=== PATIENT | female | born 1980 | race American Indian/Alaskan Native ===

== ENCOUNTER 2017-10-22 19:54 | Emergency (ER) | payer SELFPAY ==
[2017-10-22 20:17] VITALS: BP 147/88
[2017-10-22 20:49] LABS: Bilirubin,Urine NEG (Negative); Blood,Urine NEG (Negative); Ketones,Urine NEG (Negative); Leukocyte Esterase,Urine SM (Negative); Mucus,Urine FEW /HPF; Nitrite,Urine NEG (Negative); Protein,Urine <15 mg/dL mg/dL (Negative); Urobilinogen,Urine < 2.0 mg/dL (<2.0)
--- NOTE | 2017-10-22 22:05 | Emergency Department Report ---
ED Abdominal Pain HPI - General Chief Complaint: Abdominal Pain Stated Complaint: ABD PAIN Time Seen by Provider: 10/22/17 21:35 Source: patient Mode of arrival: Ambulatory Limitations: No Limitations - History of Present Illness Initial Comments: pt is a 37 y/o aaf who presents for left flank pain radiating to superpubic with urinary frequency and urgency x 5 days, pt seen by master barber dx with bv pt denies hematuria no vaginal discharge no vaginal pain no n/v no fever or chills , Complaint: abdominal pain, flank pain Onset/Timin -: days(s) Location: suprapubic Radiation: L flank Migration to: suprapubic Severity: mild Severity scale (0 -10): 2 Quality: burning Consistency: intermittent Improves With: nothing Worsens With: nothing Associated Symptoms: dysuria. denies: nausea, vomiting, fever, constipation, hematemesis, hematochezia, melena, hematuria, anorexia, syncope - Related Data LMP (females 10-50): 3 weeks Previous Rx's Medication Instructions Recorded Last Taken Type Hydrochlorothiazide [HCTZ] 25 mg PO QDAY #30 tablet 08/04/13 Unknown Rx Lisinopril/Hydrochlorothiazide 1 tab PO QDAY #30 tablet 02/26/14 Unknown Rx [Zestoretic 10-12.5 mg] Naproxen [Naprosyn] 500 mg PO BID #30 tablet 02/26/14 Unknown Rx methOCARBAMOL [Robaxin] 500 mg PO BID #30 tab 02/26/14 Unknown Rx traMADol [Ultram 50 MG tab] 50 mg PO Q6HR PRN #20 tablet 02/26/14 Unknown Rx Doxycycline [Vibramycin CAP] 100 mg PO Q12HR #20 capsule 09/06/15 Unknown Rx Fluconazole [Diflucan TAB] 150 mg PO ONCE #1 tablet 09/06/15 Unknown Rx metroNIDAZOLE [Flagyl TAB] 500 mg PO Q12HR #20 tab 09/06/15 Unknown Rx Cephalexin [Keflex] 500 mg PO Q12HR #14 cap 10/22/17 Unknown Rx metroNIDAZOLE [Flagyl] 500 mg PO Q12HR #14 tab 10/22/17 Unknown Rx Allergies Allergy/AdvReac Type Severity Reaction Status Date / Time iodine Allergy Rash Verified 08/04/13 16:42 ED Review of Systems ROS: Stated complaint: ABD PAIN Other details as noted in HPI Constitutional: denies: chills, fever Eyes: denies: eye pain, eye discharge, vision change ENT: denies: ear pain, throat pain Respiratory: denies: cough, shortness of breath, wheezing Cardiovascular: denies: chest pain, palpitations Endocrine: no symptoms reported Gastrointestinal: abdominal pain, other (left flank pain ). denies: nausea, diarrhea Genitourinary: urgency, dysuria, frequency. denies: hematuria, discharge, abnormal menses, dyspareunia Musculoskeletal: denies: back pain, joint swelling, arthralgia Skin: denies: rash, lesions Neurological: denies: headache, weakness, paresthesias Psychiatric: denies: anxiety, depression Hematological/Lymphatic: denies: easy bleeding, easy bruising ED Past Medical Hx - Past Medical History Hx Hypertension: Yes Additional medical history: pre-eclampsia - Surgical History Additional Surgical History: scar tissue removal - Social History Smoking Status: Never Smoker Substance Use Type: None, Alcohol - Medications Home Medications: Home Medications Medication Instructions Recorded Confirmed Last Taken Type Hydrochlorothiazide [HCTZ] 25 mg PO QDAY #30 tablet 08/04/13 02/26/14 Unknown Rx Lisinopril/Hydrochlorothiazide 1 tab PO QDAY #30 tablet 02/26/14 Unknown Rx [Zestoretic 10-12.5 mg] Naproxen [Naprosyn] 500 mg PO BID #30 tablet 02/26/14 Unknown Rx methOCARBAMOL [Robaxin] 500 mg PO BID #30 tab 02/26/14 Unknown Rx traMADol [Ultram 50 MG tab] 50 mg PO Q6HR PRN #20 tablet 02/26/14 Unknown Rx Doxycycline [Vibramycin CAP] 100 mg PO Q12HR #20 capsule 09/06/15 Unknown Rx Fluconazole [Diflucan TAB] 150 mg PO ONCE #1 tablet 09/06/15 Unknown Rx metroNIDAZOLE [Flagyl TAB] 500 mg PO Q12HR #20 tab 09/06/15 Unknown Rx Cephalexin [Keflex] 500 mg PO Q12HR #14 cap 10/22/17 Unknown Rx metroNIDAZOLE [Flagyl] 500 mg PO Q12HR #14 tab 10/22/17 Unknown Rx ED Physical Exam - General Limitations: No Limitations General appearance: alert, in no apparent distress - Head Head exam: Present: atraumatic, normocephalic - Eye Eye exam: Present: normal appearance - ENT ENT exam: Present: mucous membranes moist - Neck Neck exam: Present: normal inspection - Respiratory Respiratory exam: Present: normal lung sounds bilaterally. Absent: respiratory distress - Cardiovascular Cardiovascular Exam: Present: regular rate, normal rhythm. Absent: systolic murmur, diastolic murmur, rubs, gallop - GI/Abdominal GI/Abdominal exam: Present: soft, normal bowel sounds. Absent: distended, tenderness, guarding, rebound, rigid, organomegaly, mass, bruit, hernia - Rectal Rectal exam: Present: deferred - External exam: Present: other (exam deferred per patient ) - Extremities Exam Extremities exam: Present: normal inspection, full ROM. Absent: tenderness - Back Exam Back exam: Present: normal inspection, full ROM. Absent: tenderness, CVA tenderness (R), CVA tenderness (L), muscle spasm, paraspinal tenderness, vertebral tenderness, rash noted - Neurological Exam Neurological exam: Present: alert, oriented X3 - Psychiatric Psychiatric exam: Present: normal affect, normal mood - Skin Skin exam: Present: warm, dry, intact, normal color. Absent: rash ED Course Vital Signs 10/22/17 20:10 Temperature 98.9 F Pulse Rate 88 Respiratory 16 Rate Blood Pressure 147/88 O2 Sat by Pulse 97 Oximetry ED Medical Decision Making - Lab Data Laboratory Tests 10/22/17 20:30 Urine Color Yellow Urine Turbidity Clear Urine pH 5.0 Ur Specific [place] 1.017 Urine Protein <15 mg/dl Urine Glucose (UA) Neg Urine Ketones Neg Urine Blood Neg Urine Nitrite Neg Urine Bilirubin Neg Urine Urobilinogen < 2.0 Ur Leukocyte Esterase Sm Urine WBC (Auto) 3.0 Urine RBC (Auto) 3.0 U Epithel Cells (Auto) 4.0 Urine Mucus Few Urine HCG, Qual Negative - Medical Decision Making pt is a 37 y/o aaf who presents for left flank pain radiating to superpubic with urinary frequency and urgency x 5 days, pt seen by master barber dx with bv pt denies hematuria no vaginal discharge no vaginal pain no n/v no fever or chills , exam: bs normal soft nontender no rebound no point tenderness no signs no bruit no hernia ua: leuk, wbc, given symptoms with tx for uti, pt will follow up with master barber in 2-3 days as scheduled, pt verbalized agreement and understanding of same. Critical care attestation.: If time is entered above; I have spent that time in minutes in the direct care of this critically ill patient, excluding procedure time. ED Disposition Clinical Impression: UTI (urinary tract infection) Qualifiers: Urinary tract infection type: acute cystitis Hematuria presence: without hematuria Qualified Code(s): N30.00 - Acute cystitis without hematuria Disposition: TO HOME OR SELFCARE Is pt being admited?: No Does the pt Need Aspirin: No Condition: Good Instructions: Abdominal Pain (ED) Prescriptions: Cephalexin [Keflex] 500 mg PO Q12HR #14 cap metroNIDAZOLE [Flagyl] 500 mg PO Q12HR #14 tab Referrals: PRIMARY CARE, [Primary Care Provider] - 3-5 Days PROSPER ESPINAL MD [Staff Physician] - 3-5 Days Forms: Work/School Release Form(ED) Time of Disposition: 22:09
== END 2017-10-22 22:14 | disposition home or self-care (01) ==
LOC: ED 19:54
DX: N39.0 Urinary tract infection, site not specified (principal); I10 Essential (primary) hypertension; Z88.8 Allergy status to other drugs, medicaments and biological substances
CPT/HCPCS: 81001; 81025; 99283

== ENCOUNTER 2018-05-14 16:45 | Emergency (ER) | payer MEDICAID ==
[2018-05-14] MEDS ORDERED: TORADOL IM ONE (20:26)
[2018-05-14] MEDS ORDERED: FLEXERIL PO ONE (20:26)
--- NOTE | 2018-05-14 20:30 | Emergency Department Report ---
ED Back Pain/Injury HPI - General Chief Complaint: Back Pain/Injury Stated Complaint: BACK PAIN Source: patient Limitations: No Limitations - History of Present Illness Initial Comments: 37 0 -[place] female comes to the emergency room stating that she fell on yesterday while watching the fireworks. She said she fell on her back and now having back pain from the top to the bottom. Patient denies any urinary or fecal incontinence. She reports she is able to walk but it makes it worse. She reports that she took Tylenol yesterday and ibuprofen yesterday without much relief. MD Complaint: back pain, back injury, fall -: days(s) (1) Similar Symptoms Previously: No Place: street Radiation: none Severity scale (0 -10): 10 Quality: sharp, aching Consistency: constant Improves With: none Worsens With: movement Context: fall Associated Symptoms: denies other symptoms Treatments Prior to Arrival: NSAIDS, acetaminophen - Related Data Previous Rx's Medication Instructions Recorded Last Taken Type Hydrochlorothiazide [HCTZ] 25 mg PO QDAY #30 tablet 08/04/13 Unknown Rx Lisinopril/Hydrochlorothiazide 1 tab PO QDAY #30 tablet 02/26/14 Unknown Rx [Zestoretic 10-12.5 mg] Naproxen [Naprosyn] 500 mg PO BID #30 tablet 02/26/14 Unknown Rx methOCARBAMOL [Robaxin] 500 mg PO BID #30 tab 02/26/14 Unknown Rx traMADol [Ultram 50 MG tab] 50 mg PO Q6HR PRN #20 tablet 02/26/14 Unknown Rx Doxycycline [Vibramycin CAP] 100 mg PO Q12HR #20 capsule 09/06/15 Unknown Rx Fluconazole [Diflucan TAB] 150 mg PO ONCE #1 tablet 09/06/15 Unknown Rx metroNIDAZOLE [Flagyl TAB] 500 mg PO Q12HR #20 tab 09/06/15 Unknown Rx Cephalexin [Keflex] 500 mg PO Q12HR #14 cap 10/22/17 Unknown Rx metroNIDAZOLE [Flagyl] 500 mg PO Q12HR #14 tab 10/22/17 Unknown Rx Baclofen [Lioresal] 10 mg PO TID #15 tab 05/14/18 Unknown Rx Ibuprofen [Motrin 800 MG tab] 800 mg PO Q8HR PRN #30 tablet 05/14/18 Unknown Rx Allergies Allergy/AdvReac Type Severity Reaction Status Date / Time iodine Allergy Rash Verified 08/04/13 16:42 ED Review of Systems ROS: Stated complaint: BACK PAIN Other details as noted in HPI Gastrointestinal: denies: abdominal pain, nausea, vomiting Musculoskeletal: back pain Skin: denies: rash, lesions Neurological: denies: headache, weakness, paresthesias Psychiatric: as per HPI ED Past Medical Hx - Past Medical History Hx Hypertension: Yes Additional medical history: pre-eclampsia - Surgical History Additional Surgical History: scar tissue removal - Social History Smoking Status: Never Smoker Substance Use Type: Alcohol - Medications Home Medications: Home Medications Medication Instructions Recorded Confirmed Last Taken Type Hydrochlorothiazide [HCTZ] 25 mg PO QDAY #30 tablet 08/04/13 02/26/14 Unknown Rx Lisinopril/Hydrochlorothiazide 1 tab PO QDAY #30 tablet 02/26/14 Unknown Rx [Zestoretic 10-12.5 mg] Naproxen [Naprosyn] 500 mg PO BID #30 tablet 02/26/14 Unknown Rx methOCARBAMOL [Robaxin] 500 mg PO BID #30 tab 02/26/14 Unknown Rx traMADol [Ultram 50 MG tab] 50 mg PO Q6HR PRN #20 tablet 02/26/14 Unknown Rx Doxycycline [Vibramycin CAP] 100 mg PO Q12HR #20 capsule 09/06/15 Unknown Rx Fluconazole [Diflucan TAB] 150 mg PO ONCE #1 tablet 09/06/15 Unknown Rx metroNIDAZOLE [Flagyl TAB] 500 mg PO Q12HR #20 tab 09/06/15 Unknown Rx Cephalexin [Keflex] 500 mg PO Q12HR #14 cap 10/22/17 Unknown Rx metroNIDAZOLE [Flagyl] 500 mg PO Q12HR #14 tab 10/22/17 Unknown Rx Baclofen [Lioresal] 10 mg PO TID #15 tab 05/14/18 Unknown Rx Ibuprofen [Motrin 800 MG tab] 800 mg PO Q8HR PRN #30 tablet 05/14/18 Unknown Rx ED Physical Exam - General Limitations: No Limitations General appearance: alert, in no apparent distress - Head Head exam: Present: atraumatic, normocephalic - Eye Eye exam: Present: EOMI - ENT ENT exam: Present: mucous membranes moist - Respiratory Respiratory exam: Present: normal lung sounds bilaterally. Absent: respiratory distress - Cardiovascular Cardiovascular Exam: Present: regular rate, normal rhythm. Absent: systolic murmur, diastolic murmur, rubs, gallop - Extremities Exam Extremities exam: Present: normal inspection, full ROM - Back Exam Back exam: Present: full ROM, tenderness, muscle spasm, paraspinal tenderness - Neurological Exam Neurological exam: Present: alert, oriented X3 - Psychiatric Psychiatric exam: Present: normal affect, normal mood - Skin Skin exam: Present: warm, dry, intact, normal color. Absent: rash ED Course Vital Signs 05/14/18 16:55 Temperature 98.2 F Pulse Rate 69 Respiratory 16 Rate Blood Pressure 164/98 O2 Sat by Pulse 99 Oximetry ED Medical Decision Making - Radiology Data Radiology results: report reviewed FINAL REPORT EXAM: XR SPINE THORACIC 2V HISTORY: fall with back pain TECHNIQUE: AP and lateral views of thoracic spine. PRIORS: None. FINDINGS: No loss of height or gross malalignment of thoracic vertebral bodies. No obvious osseous destruction. Thoracic disc spaces maintained. Paraspinal soft tissues grossly unremarkable. IMPRESSION: 1. No acute osseous abnormality. Transcribed By: [facility] Dictated By: DORIS SCHAEFER MD Electronically Authenticated By: DORIS SCHAEFER MD Signed Date/Time: 05/14/182133 DD/ 33 TD/TT: 05/14/182133 FINDINGS: No loss of height or gross malalignment of lumbar vertebral bodies. No obvious osseous destruction. Lumbar disc spaces maintained. Paraspinal soft tissues grossly unremarkable. IMPRESSION: 1. No acute osseous abnormality. Transcribed By: [facility] Dictated By: DORIS SCHAEFER MD Electronically Authenticated By: DORIS SCHAEFER MD Signed Date/Time: 05/14/182132 DD/ 32 TD/TT: 05/14/182132 - Medical Decision Making Patient has been evaluated but this provider fast track. Patient will be given a Toradol injection of 30 mg and Flexeril 10 mg. We'll discharge patient on ibuprofen 800 mg every 8 hours as needed for pain as well as Flexeril 10 mg by mouth every 8 hours as needed for muscle sparing foods and tightness and pain.. If symptoms persist does not get better please follow up with her primary care provider. Critical care attestation.: If time is entered above; I have spent that time in minutes in the direct care of this critically ill patient, excluding procedure time. ED Disposition Clinical Impression: Fall Qualifiers: Encounter type: initial encounter Qualified Code(s): W19.XXXA - Unspecified fall, initial encounter Back strain Qualifiers: Encounter type: initial encounter Qualified Code(s): S39.012A - Strain of muscle, fascia and tendon of lower back, initial encounter Disposition: TO HOME OR SELFCARE Is pt being admited?: No Does the pt Need Aspirin: No Condition: Stable Additional Instructions: Please take pain medication as needed. If her symptoms persist or gets worse please follow-up with the primary care provider. Prescriptions: Baclofen [Lioresal] 10 mg PO TID #15 tab Ibuprofen [Motrin 800 MG tab] 800 mg PO Q8HR PRN #30 tablet PRN Reason: Pain , Severe (7-10) Referrals: PRIMARY CARE, [Primary Care Provider] - 3-[address] [facility] [Provider Group] - 3-5 Days Forms: Work/School Release Form(ED)
--- NOTE | 2018-05-14 21:37 | XRay Report ---
FINAL REPORT EXAM: XR SPINE LUMBOSACRAL 2-3V HISTORY: fall with back pain TECHNIQUE: AP, lateral and coned-down views of lumbar spine. PRIORS: None. FINDINGS: No loss of height or gross malalignment of lumbar vertebral bodies. No obvious osseous destruction. Lumbar disc spaces maintained. Paraspinal soft tissues grossly unremarkable. IMPRESSION: 1. No acute osseous abnormality.
--- NOTE | 2018-05-14 21:38 | XRay Report ---
FINAL REPORT EXAM: XR SPINE THORACIC 2V HISTORY: fall with back pain TECHNIQUE: AP and lateral views of thoracic spine. PRIORS: None. FINDINGS: No loss of height or gross malalignment of thoracic vertebral bodies. No obvious osseous destruction. Thoracic disc spaces maintained. Paraspinal soft tissues grossly unremarkable. IMPRESSION: 1. No acute osseous abnormality.
[2018-05-14 22:09] VITALS: BP 126/64
== END 2018-05-14 22:07 | disposition home or self-care (01) ==
LOC: ED 16:45
DX: S39.012A Strain of muscle, fascia and tendon of lower back, initial encounter (principal); I10 Essential (primary) hypertension; Z88.8 Allergy status to other drugs, medicaments and biological substances; W18.30XA Fall on same level, unspecified, initial encounter; Y93.89 Activity, other specified; Y92.410 Unspecified street and highway as the place of occurrence of the external cause; Y99.8 Other external cause status
CPT/HCPCS: 72070; 72100; 96372; 99283; J1885

== ENCOUNTER 2018-07-23 17:49 | Emergency (ER) | payer MEDICAID ==
[2018-07-23 18:32] VITALS: BP 166/109
[2018-07-23 19:04] LABS: Bilirubin,Urine NEG (Negative); Blood,Urine NEG (Negative); Color,Urine Yellow (Yellow); Mucus,Urine 1+ /HPF; Protein,Urine <15 mg/dL mg/dL (Negative)
[2018-07-23 19:07] LABS: Basophils # (Auto) 0.1 K/mm3 (0.0-0.1); Basophils % (Auto) 1.1 % (0.0-1.8); Eosinophils # (Auto) 0.1 K/mm3 (0.0-0.4); Eosinophils % (Auto) 1.7 % (0.0-4.3); Hematocrit 39.8 % (30.3-42.9); Hemoglobin 13.4 gm/dl (10.1-14.3); Lymphocytes # (Auto) 3.1 K/mm3 (1.2-5.4); Lymphocytes % (Auto) 43.6 % (13.4-35.0); Mean Corpuscular HGB Conc 34 % (30-34); Mean Corpuscular Hemoglobin 30 pg (28-32); Mean Corpuscular Volume 90 fl (79-97); Monocytes # (Auto) 0.4 K/mm3 (0.0-0.8); Monocytes % (Auto) 5.1 % (0.0-7.3); Platelet Count 297 K/mm3 (140-440); Red Blood Count 4.44 M/mm3 (3.65-5.03); Red Cell Distribution Width 13.6 % (13.2-15.2)
[2018-07-23 19:50] LABS: Alanine Aminotransferase 17 units/L (7-56); BUN/Creatinine Ratio 12; Blood Urea Nitrogen 12 mg/dL (7-17); Calcium 9.1 mg/dL (8.4-10.2); Hemolysis Index 10
== END 2018-07-23 23:00 | disposition left against medical advice (07) ==
LOC: ED 17:49
DX: R11.2 Nausea with vomiting, unspecified (principal); R19.7 Diarrhea, unspecified; Z53.21 Procedure and treatment not carried out due to patient leaving prior to being seen by health care provider
CPT/HCPCS: 36415; 80053; 81001; 84703; 85025

== ENCOUNTER 2019-12-30 18:46 | Emergency (ER) | payer MEDICAID ==
--- NOTE | 2019-12-30 19:35 | Emergency Department Report ---
Blank Doc - Documentation Documentation: 39-year-old female that presents with n/v/d and abdominal pain. Stated has been also coughing. This initial assessment/diagnostic orders/clinical plan/treatment(s) is/are subject to change based on patient's health status, clinical progression and re- assessment by fellow clinical providers in the ED. Further treatment and workup at subsequent clinical providers discretion. Patient/guardians urged not to elope from the ED as their condition may be serious if not clinically assessed and managed. Initial orders include: 1- Patient sent to [facility] for further evaluation and treatment 2- labs 3- UA 4- CXR
[2019-12-30 20:05] LABS: Eosinophils # (Auto) 0.1 K/mm3 (0.0-0.4); Eosinophils % (Auto) 2.3 % (0.0-4.3); Hematocrit 42.1 % (30.3-42.9); Hemoglobin 13.9 gm/dl (10.1-14.3); Lymphocytes # (Auto) 1.2 K/mm3 (1.2-5.4); Lymphocytes % (Auto) 33.7 % (13.4-35.0); Mean Corpuscular HGB Conc 33 % (30-34); Mean Corpuscular Volume 89 fl (79-97); Monocytes # (Auto) 0.3 K/mm3 (0.0-0.8); Monocytes % (Auto) 8.2 % (0.0-7.3); Platelet Count 231 K/mm3 (140-440); Red Blood Count 4.73 M/mm3 (3.65-5.03); Red Cell Distribution Width 13.6 % (13.2-15.2)
[2019-12-30 20:25] LABS: Alanine Aminotransferase 28 units/L (7-56); Albumin 3.3 g/dL (3.9-5); BUN/Creatinine Ratio 10; Blood Urea Nitrogen 6 mg/dL (7-17); Calcium 8.5 mg/dL (8.4-10.2); Hemolysis Index 60
[2019-12-30 20:35] LABS: Bilirubin,Urine NEG (Negative); Blood,Urine SM (Negative); Color,Urine Yellow (Yellow); Hyaline Casts,Urine 1 /LPF; Mucus,Urine 1+ /HPF; Protein,Urine <15 mg/dL mg/dL (Negative); Urobilinogen,Urine < 2.0 mg/dL (<2.0)
--- NOTE | 2019-12-30 20:39 | XRay Report ---
CHEST 2 VIEWS INDICATION: cough. COMPARISON: None FINDINGS: Support devices: None. Heart: Within normal limits. Lungs/pleura: No acute air space or interstitial disease. No pneumothorax. Additional findings: None. IMPRESSION: 1. No acute findings. Signer Name: Tha Franco MD Signed: 12/30/2019 8:34 PM Workstation Name: [id number]
--- NOTE | 2019-12-30 22:01 | Emergency Department Report ---
Chief Complaint: Abdominal Pain Stated Complaint: FLU SYM/BODY PAIN Time Seen by Provider: 12/30/19 21:44 - HPI History of Present Illness: 39-year-old -[place] female presents to the emergency room for body aches, coughing nausea vomiting diarrhea and chills that started 3 days ago. Patient was noted that her blood pressure was elevated patient reports she has not taken any blood pressure medicines in the last 2 years. Patient states that she was on a hydrochlorothiazide. Patient states that she has stopped because it made her feel funny. Patient reports that she has taken Allyssa-Marlin plus and NyQuil. - Exam Vital Signs: Vital Signs 12/30/19 12/30/19 18:56 19:34 Temperature 99.1 F 99.1 F Pulse Rate 86 86 Respiratory 18 Rate Blood Pressure 162/95 Blood Pressure 184/103 [Left] O2 Sat by Pulse 98 Oximetry Physical Exam: Patient is alert and oriented x3 no acute distress nontoxic in appearance HEENT: Oral mucosa is moist neck is full range of motion no tenderness Chest clear to auscultation bilateral cardiac regular rate and rhythm Abdomen soft nontender nondistended MSE screening note: Focused history and physical exam performed. Due to findings the following was ordered: 39-year-old -[place] female presents to the emergency room for body aches, coughing nausea vomiting diarrhea and chills that started 3 days ago. Patient was noted that her blood pressure was elevated patient reports she has not taken any blood pressure medicines in the last 2 years. Patient states that she was on a hydrochlorothiazide. Patient states that she has stopped because it made her feel funny. Patient reports that she has taken Allyssa-Marlin plus and NyQuil. Discussed with patient.labs are stable. Chest x-ray is negative patient can take ibuprofen 600 mg every 6-8 hours for body aches she can take Claritin 10 mg p.o. for cough as well as [id number] Mucinex. Patient can follow-up with her primary care provider if symptoms persist. ED Medical Decision Making - Lab Data Result diagrams: 12/30/19 19:42 12/30/19 19:42 ED Disposition for MSE Clinical Impression: Flu-like symptoms Disposition: Z- MED SCREENING EXAM-LEFT Is pt being admited?: No Does the pt Need Aspirin: No Condition: Stable Instructions: Abdominal Pain (ED) Additional Instructions: Discussed with patient.labs are stable. Chest x-ray is negative patient can wanda e ibuprofen 600 mg every 6-8 hours for body aches she can take Claritin 10 mg p.o. for cough as well as [id number] Mucinex. Increase fluid intake advance diet as tolerated. Rest. Patient can follow-up with her primary care provider if symptoms persist. Referrals: LINDA KATE MD [Primary Care Provider] - 3-5 Days Forms: Work/School Release Form(ED)
[2019-12-30 22:20] VITALS: BP 152/96
== END 2019-12-30 22:19 | disposition left against medical advice (07) ==
LOC: ED 18:46
DX: R05 Cough (principal); R11.2 Nausea with vomiting, unspecified; M79.10 Myalgia, unspecified site; R19.7 Diarrhea, unspecified; R68.83 Chills (without fever); Z91.041 Radiographic dye allergy status
CPT/HCPCS: 36415; 71046; 80053; 81001; 83690; 84703; 85025

== ENCOUNTER 2020-04-17 10:51 | Emergency (ER) | payer SELFPAY ==
[2020-04-17 10:58] VITALS: BP 167/107
[2020-04-17 11:38] LABS: Basophils % (Auto) 0.5 % (0.0-1.8); Eosinophils # (Auto) 0.1 K/mm3 (0.0-0.4); Eosinophils % (Auto) 1.3 % (0.0-4.3); Lymphocytes # (Auto) 0.9 K/mm3 (1.2-5.4); Lymphocytes % (Auto) 20.9 % (13.4-35.0); Monocytes # (Auto) 0.3 K/mm3 (0.0-0.8); Monocytes % (Auto) 7.8 % (0.0-7.3)
[2020-04-17 11:42] LABS: Bacteria,Urine 1+ /HPF (Negative); Bilirubin,Urine NEG (Negative); Blood,Urine NEG (Negative); Color,Urine Yellow (Yellow); Mucus,Urine FEW /HPF; Protein,Urine <15 mg/dL mg/dL (Negative); Urobilinogen,Urine < 2.0 mg/dL (<2.0)
[2020-04-17 11:47] LABS: HCG Qualitative,Urine Negative (Negative)
[2020-04-17 11:49] LABS: Hematocrit 38.7 % (30.3-42.9); Hemoglobin 12.9 gm/dl (10.1-14.3); Mean Corpuscular HGB Conc 33 % (30-34); Mean Corpuscular Volume 89 fl (79-97); Platelet Count 220 K/mm3 (140-440); Red Blood Count 4.36 M/mm3 (3.65-5.03); Red Cell Distribution Width 13.7 % (13.2-15.2)
[2020-04-17 12:01] LABS: Alanine Aminotransferase 23 units/L (7-56); Albumin 3.7 g/dL (3.9-5); BUN/Creatinine Ratio 12; Blood Urea Nitrogen 7 mg/dL (7-17); Calcium 8.4 mg/dL (8.4-10.2); Hemolysis Index 8
[2020-04-17] MEDS ORDERED: HYOSCYAMINE SUBL 0.125 MG TAB SL ONE (13:07)
[2020-04-17] MEDS ORDERED: ACETAMINOPHEN 325 MG TAB PO ONE (13:07)
--- NOTE | 2020-04-17 13:12 | Emergency Department Report ---
ED General Adult HPI - General Chief complaint: Upper Respiratory Infection Stated complaint: FLU SX/DIZZY Time Seen by Provider: 04/17/20 11:04 Source: patient Mode of arrival: Ambulatory Limitations: No Limitations - History of Present Illness Initial comments: Patient is a 39-year-old female presents emergency room with complaints of "flulike symptoms" that began last night. She has associated chills, diarrhea, generalized body aches, lightheadedness, cough. She states that she took a Allyssa-Winona last night. She denies any abdominal pain, shortness of breath, vomiting. She has a past medical history of hypertension and states that she takes hydrochlorothiazide but did not take it today. She has an allergy to iodine. She denies any known sick contacts or recent travel. - Related Data Previous Rx's Medication Instructions Recorded Last Taken Type hydroCHLOROthiazide [HCTZ] 25 mg PO QDAY #30 tablet 08/04/13 Unknown Rx Lisinopril/Hydrochlorothiazide 1 tab PO QDAY #30 tablet 02/26/14 Unknown Rx [Zestoretic 10-12.5 mg] Naproxen [Naprosyn] 500 mg PO BID #30 tablet 02/26/14 Unknown Rx methOCARBAMOL [Robaxin] 500 mg PO BID #30 tab 02/26/14 Unknown Rx traMADoL [Ultram 50 MG tab] 50 mg PO Q6HR PRN #20 tablet 02/26/14 Unknown Rx DOXYCYCLINE Hyclate [Vibramycin 100 mg PO Q12HR #20 capsule 09/06/15 Unknown Rx CAP] Fluconazole (Nf) [Diflucan TAB] 150 mg PO ONCE #1 tablet 09/06/15 Unknown Rx metroNIDAZOLE [Flagyl TAB] 500 mg PO Q12HR #20 tab 09/06/15 Unknown Rx cephALEXin [Keflex] 500 mg PO Q12HR #14 cap 10/22/17 Unknown Rx metroNIDAZOLE [Flagyl] 500 mg PO Q12HR #14 tab 10/22/17 Unknown Rx Baclofen [Lioresal] 10 mg PO TID #15 tab 05/14/18 Unknown Rx Ibuprofen [Motrin 800 MG tab] 800 mg PO Q8HR PRN #30 tablet 05/14/18 Unknown Rx Allergies Allergy/AdvReac Type Severity Reaction Status Date / Time iodine Allergy Rash Verified 12/30/19 18:53 ED Review of Systems ROS: Stated complaint: FLU SX/DIZZY Other details as noted in HPI Comment: All other systems reviewed and negative ED Past Medical Hx - Past Medical History Previous Medical History?: Yes Hx Hypertension: Yes Additional medical history: pre-eclampsia - Surgical History Past Surgical History?: Yes Additional Surgical History: scar tissue removal UTERUS - Social History Smoking Status: Current Every Day Smoker Substance Use Type: Alcohol - Medications Home Medications: Home Medications Medication Instructions Recorded Confirmed Last Taken Type hydroCHLOROthiazide [HCTZ] 25 mg PO QDAY #30 tablet 08/04/13 02/26/14 Unknown Rx Lisinopril/Hydrochlorothiazide 1 tab PO QDAY #30 tablet 02/26/14 Unknown Rx [Zestoretic 10-12.5 mg] Naproxen [Naprosyn] 500 mg PO BID #30 tablet 02/26/14 Unknown Rx methOCARBAMOL [Robaxin] 500 mg PO BID #30 tab 02/26/14 Unknown Rx traMADoL [Ultram 50 MG tab] 50 mg PO Q6HR PRN #20 tablet 02/26/14 Unknown Rx DOXYCYCLINE Hyclate [Vibramycin 100 mg PO Q12HR #20 capsule 09/06/15 Unknown Rx CAP] Fluconazole (Nf) [Diflucan TAB] 150 mg PO ONCE #1 tablet 09/06/15 Unknown Rx metroNIDAZOLE [Flagyl TAB] 500 mg PO Q12HR #20 tab 09/06/15 Unknown Rx cephALEXin [Keflex] 500 mg PO Q12HR #14 cap 10/22/17 Unknown Rx metroNIDAZOLE [Flagyl] 500 mg PO Q12HR #14 tab 10/22/17 Unknown Rx Baclofen [Lioresal] 10 mg PO TID #15 tab 05/14/18 Unknown Rx Ibuprofen [Motrin 800 MG tab] 800 mg PO Q8HR PRN #30 tablet 05/14/18 Unknown Rx ED Physical Exam - General Limitations: No Limitations General appearance: alert, in no apparent distress - Head Head exam: Present: atraumatic, normocephalic - Eye Eye exam: Present: normal appearance - ENT ENT exam: Present: mucous membranes moist - Respiratory Respiratory exam: Present: normal lung sounds bilaterally. Absent: respiratory distress, wheezes, rales, rhonchi, stridor, chest wall tenderness, accessory muscle use, decreased breath sounds, prolonged expiratory - Cardiovascular Cardiovascular Exam: Present: regular rate, normal rhythm, normal heart sounds. Absent: systolic murmur, diastolic murmur, rubs, gallop - GI/Abdominal GI/Abdominal exam: Present: soft, normal bowel sounds. Absent: distended, tenderness, guarding, rebound, rigid - Neurological Exam Neurological exam: Present: alert, oriented X3 - Psychiatric Psychiatric exam: Present: normal affect, normal mood - Skin Skin exam: Present: warm, dry, intact ED Course Vital Signs 04/17/20 04/17/20 10:55 11:03 Temperature 99.7 F H 99.7 F H Pulse Rate 88 88 Respiratory 20 20 Rate Blood Pressure 167/107 167/107 O2 Sat by Pulse 100 100 Oximetry ED Medical Decision Making - Lab Data Result diagrams: 04/17/20 11:15 04/17/20 11:15 Lab Results 04/17/20 04/17/20 04/17/20 Range/Units 11:13 11:15 11:15 WBC 4.1 L (4.5-11.0) K/mm3 RBC 4.36 (3.65-5.03) M/mm3 Hgb 12.9 (10.1-14.3) gm/dl Hct 38.7 (30.3-42.9) % MCV 89 (79-97) fl MCH 30 (28-32) pg MCHC 33 (30-34) % RDW 13.7 (13.2-15.2) % Plt Count 220 (140-440) K/mm3 Lymph % (Auto) 20.9 (13.4-35.0) % Wilson % (Auto) 7.8 H (0.0-7.3) % Eos % (Auto) 1.3 (0.0-4.3) % Baso % (Auto) 0.5 (0.0-1.8) % Lymph # 0.9 L (1.2-5.4) K/mm3 Wilson # 0.3 (0.0-0.8) K/mm3 Eos # 0.1 (0.0-0.4) K/mm3 Baso # 0.0 (0.0-0.1) K/mm3 Seg Neutrophils % 69.5 (40.0-70.0) % Seg Neutrophils # 2.9 (1.8-7.7) K/mm3 Sodium 137 (137-145) mmol/L Potassium 3.8 (3.6-5.0) mmol/L Chloride 104.7 (98-107) mmol/L Carbon Dioxide 24 (22-30) mmol/L Anion Gap 12 mmol/L BUN 7 (7-17) mg/dL Creatinine 0.6 L (0.7-1.2) mg/dL Estimated GFR > 60 ml/min BUN/Creatinine Ratio 12 % Glucose 109 H (65-100) mg/dL Calcium 8.4 (8.4-10.2) mg/dL Total Bilirubin 0.30 (0.1-1.2) mg/dL AST 20 (5-40) units/L ALT 23 (7-56) units/L Alkaline Phosphatase 73 (35-129) units/L Total Protein 6.6 (6.3-8.2) g/dL Albumin 3.7 L (3.9-5) g/dL Albumin/Globulin Ratio 1.3 % Lipase 25 (13-60) units/L Urine Color Yellow (Yellow) Urine Turbidity Cloudy (Clear) Urine pH 7.0 (5.0-7.0) Ur Specific Sumner 1.017 (1.003-1.030) Urine Protein <15 mg/dl (Negative) mg/dL Urine Glucose (UA) Neg (Negative) mg/dL Urine Ketones Neg (Negative) mg/dL Urine Blood Neg (Negative) Urine Nitrite Neg (Negative) Urine Bilirubin Neg (Negative) Urine Urobilinogen < 2.0 (<2.0) mg/dL Ur Leukocyte Esterase Neg (Negative) Urine WBC (Auto) 1.0 (0.0-6.0) /HPF Urine RBC (Auto) 1.0 (0.0-6.0) /HPF U Epithel Cells (Auto) 37.0 H (0-13.0) /HPF Urine Bacteria (Auto) 1+ (Negative) /HPF Urine Mucus Few /HPF Urine HCG, Qual Negative (Negative) - Radiology Data Radiology results: report reviewed CHEST 2 VIEWS INDICATION: cough and. COMPARISON: 12/30/2019 FINDINGS: Support devices: None. Heart: Within normal limits. Lungs/pleura: No acute air space or interstitial disease. No pneumothorax. Additional findings: None. IMPRESSION: No acute findings. Signer Name: Jose Miguel Hernandez Jr, MD Signed: 04/17/2020 12:21 PM Workstation Name: [id number] Transcribed By: TTR Dictated By: JOSE MIGUEL HERNANDEZ JR, MD Electronically Authenticated By: JOSE MIGUEL HERNANDEZ JR, MD Signed Date/Time: 04/17/201220 DD/ 20 TD/TT: - Medical Decision Making Patient is a 39-year-old female presents emergency room with complaints of "flulike symptoms" that began last night. She has associated chills, diarrhea, generalized body aches, lightheadedness, cough. She states that she took a Allyssa-Winona last night. She denies any abdominal pain, shortness of breath, vomiting. She has a past medical history of hypertension and states that she takes hydrochlorothiazide but did not take it today. She has an allergy to iodine. She denies any known sick contacts or recent travel. Vitals with very mild low-grade temp, patient given Tylenol, blood pressure is elevated secondary to patient not taking her hydrochlorothiazide today. Breath sounds are clear bilaterally, no wheezing, no rales, no rhonchi, no abdominal tenderness to palpation, no guarding, no rebound, no rigidity, normal bowel sounds. Labs are stable and without signs of dehydration. UA without evidence of UTI. Urine is negative. Patient given Levsin and was able to tolerate p.o. intake without difficulty. She had no further episodes of diarrhea while in the emergency department. Chest x-ray with no acute process. Patient symptoms most likely related to viral syndrome. Her x-ray is normal, labs are all stable, no signs of dehydration, oxygen saturation is 100% on room air. Discussed supportive care and symptomatic treatment with patient. Discussed strict return precautions. Discussed with patient to please take her blood pressure medication when she returns home. Advised patient Please increase your fluid intake over the next several days. Take Tylenol as needed for body aches or fever. Eat a bland diet and began with liquids and slowly advance your diet as tolerated. Get plenty of rest. May take [id number] medication for symptomatic relief. Follow-up with a primary care doctor for reexamination. Return to emergency room immediately for any new or worsening symptoms including but not limited to shortness of breath, difficulty breathing, chest pain, unable to tolerate by mouth intake, high fever not controlled by Tylenol, etc. please self quarantine for 2 weeks. Please do not go out in public. If you are around others at home please wear a mask. If you need to cough or sneeze please do so in a napkin and immediately throw away and wash your hands. Wash your hands frequently. Wipe everything down. Please discuss with your doctor about COVID- 19 testing. - Differential Diagnosis URI, PNA, gastroenteritis, enteritis, viral syndrome, food poisoning, COVID Critical care attestation.: If time is entered above; I have spent that time in minutes in the direct care of this critically ill patient, excluding procedure time. ED Disposition Clinical Impression: Chills, Generalized body aches, Cough, Lightheadedness Diarrhea Qualifiers: Diarrhea type: unspecified type Qualified Code(s): R19.7 - Diarrhea, unspecified Disposition: DC- TO HOME OR SELFCARE Is pt being admited?: No Does the pt Need Aspirin: No Condition: Stable Instructions: COVID-19, Viral Syndrome (ED) Additional Instructions: Please increase your fluid intake over the next several days. Take Tylenol as needed for body aches or fever. Eat a bland diet and began with liquids and slowly advance your diet as tolerated. Get plenty of rest. May take [id number] medication for symptomatic relief. Follow-up with a primary care doctor for reexamination. Return to emergency room immediately for any new or worsening symptoms including but not limited to shortness of breath, difficulty breathing, chest pain, unable to tolerate by mouth intake, high fever not controlled by Tylenol, etc. please self quarantine for 2 weeks. Please do not go out in public. If you are around others at home please wear a mask. If you need to cough or sneeze please do so in a napkin and immediately throw away and wash your hands. Wash your hands frequently. Wipe everything down. Please discuss with your doctor about COVID-19 testing. Referrals: PRIMARY MD LICHA [Primary Care Provider] - 3-5 Days SOL GARRIDO MD [Staff Physician] - 3-5 Days [facility] [Provider Group] - 3-5 Days Forms: Work/School Release Form(ED) Time of Disposition: 13:10 Print Language: JAPANESE
== END 2020-04-17 13:21 | disposition home or self-care (01) ==
LOC: ED 10:51
DX: R42 Dizziness and giddiness (principal); R19.7 Diarrhea, unspecified; R05 Cough; I10 Essential (primary) hypertension; F17.200 Nicotine dependence, unspecified, uncomplicated; Z91.09 Other allergy status, other than to drugs and biological substances
CPT/HCPCS: 36415; 71046; 80053; 81001; 81025; 83690; 85025

== ENCOUNTER 2021-03-20 11:04 | Emergency (ER) | payer MEDICAID ==
[2021-03-20 12:20] VITALS: BP 159/107
--- NOTE | 2021-03-20 13:12 | Emergency Department Report ---
ED ENT HPI - General Chief complaint: Sore Throat Stated complaint: HARD TO SWALLOW Time Seen by Provider: 03/20/21 12:22 Source: patient Mode of arrival: Ambulatory Limitations: No Limitations - History of Present Illness Initial comments: 40-year-old female with a past medical history of hypertension currently noncompliant with her medication presents to the ER today with complaints of sore throat. Patient states her symptoms started mildly yesterday but got worse today. She states that pain feels sharp, and she is having difficulty swallowing due to pain. She denies any runny nose, nasal congestion, coughs, trismus or drooling. She states that she found out yesterday that a few of her coworkers were positive for strep. She reports no other symptoms at this time. complaint: sore throat -: Gradual - Related Data Previous Rx's Medication Instructions Recorded Last Taken Type Amoxicillin [Trimox CAP] 500 mg PO Q8H PRN #30 capsule 03/20/21 Unknown Rx Ibuprofen [Motrin] 800 mg PO Q8HR PRN #30 tablet 03/20/21 Unknown Rx Allergies Allergy/AdvReac Type Severity Reaction Status Date / Time iodine Allergy Rash Verified 12/30/19 18:53 ED Dental HPI - General Chief complaint: Sore Throat Stated complaint: HARD TO SWALLOW Time Seen by Provider: 03/20/21 12:22 Source: patient Mode of arrival: Ambulatory Limitations: No Limitations - Related Data Previous Rx's Medication Instructions Recorded Last Taken Type Amoxicillin [Trimox CAP] 500 mg PO Q8H PRN #30 capsule 03/20/21 Unknown Rx Ibuprofen [Motrin] 800 mg PO Q8HR PRN #30 tablet 03/20/21 Unknown Rx Allergies Allergy/AdvReac Type Severity Reaction Status Date / Time iodine Allergy Rash Verified 12/30/19 18:53 ED Review of Systems ROS: Stated complaint: HARD TO SWALLOW Other details as noted in HPI Comment: All other systems reviewed and negative Constitutional: denies: chills, fever Eyes: denies: eye pain, eye discharge, vision change ENT: throat pain. denies: ear pain, dental pain, hearing loss, epistaxis, congestion Respiratory: denies: cough, orthopnea, shortness of breath, SOB with exertion, SOB at rest, wheezing Cardiovascular: denies: chest pain, palpitations, edema, syncope, paroxysmal nocturnal dyspnea Endocrine: no symptoms reported Gastrointestinal: denies: abdominal pain, nausea, vomiting, diarrhea, constipation, hematemesis, hematochezia Genitourinary: denies: urgency, dysuria, frequency, hematuria, discharge, abnormal menses, dyspareunia Musculoskeletal: denies: back pain, joint swelling, arthralgia Skin: denies: rash, lesions Neurological: denies: headache, weakness, numbness, paresthesias, confusion, abnormal gait, vertigo Hematological/Lymphatic: denies: easy bleeding, easy bruising, swollen glands ED Past Medical Hx - Past Medical History Previous Medical History?: Yes Hx Hypertension: Yes Additional medical history: pre-eclampsia - Surgical History Additional Surgical History: scar tissue removal UTERUS - Social History Smoking Status: Never Smoker Substance Use Type: Alcohol - Medications Home Medications: Home Medications Medication Instructions Recorded Confirmed Last Taken Type Amoxicillin [Trimox CAP] 500 mg PO Q8H PRN #30 capsule 03/20/21 Unknown Rx Ibuprofen [Motrin] 800 mg PO Q8HR PRN #30 tablet 03/20/21 Unknown Rx ED Physical Exam - General Limitations: No Limitations General appearance: alert, in no apparent distress, obese - Head Head exam: Present: atraumatic, normocephalic, normal inspection - Eye Eye exam: Present: normal appearance, PERRL, EOMI - ENT ENT exam: Present: TM's normal bilaterally - Expanded ENT Exam Expanded Mouth exam: Present: normal external inspection. Absent: drooling, trismus, muffled voice, tongue normal, tongue elevation, laceration Throat exam: Positive: tonsillar erythema. Negative: tonsillomegaly, tonsillar exudate, R peritonsillar mass, L peritonsillar mass - Neck Neck exam: Present: normal inspection, full ROM, lymphadenopathy. Absent: meningismus - Respiratory Respiratory exam: Present: normal lung sounds bilaterally. Absent: respiratory distress, wheezes, rales, rhonchi - Cardiovascular Cardiovascular Exam: Present: regular rate, normal rhythm, normal heart sounds - GI/Abdominal GI/Abdominal exam: Present: soft. Absent: distended, tenderness, guarding, rebo und - Back Exam Back exam: Present: normal inspection - Neurological Exam Neurological exam: Present: alert, oriented X3, CN II-XII intact, normal gait - Psychiatric Psychiatric exam: Present: normal affect, normal mood - Skin Skin exam: Present: intact ED Course Vital Signs 05/11/21 12:17 Temperature 98.5 F Pulse Rate 61 Respiratory 18 Rate Blood Pressure 159/107 O2 Sat by Pulse 100 Oximetry ED Medical Decision Making - Medical Decision Making 40-year-old female with a past medical history of hypertension currently non compliant with her medication presents to the ER today with complaints of sore throat. Patient states her symptoms started mildly yesterday but got worse today. She states that pain feels sharp, and she is having difficulty swallowing due to pain. She denies any runny nose, nasal congestion, coughs, trismus or drooling. She states that she found out yesterday that a few of her coworkers were positive for strep. She reports no other symptoms at this time. 1330: Patient is well-appearing, nontoxic and not in any acute pain or respiratory distress. There is no trismus, or drooling, she is able to tolerate her secretions, and has no stridor on exam. Her airway is patent. No evidence of peritonsillar abscess, Terese's, sepsis or any other significant bacterial infection or emergent conditions requiring work-up at this time. Patient will be treated for possible strep throat given her symptoms, and possible exposures to coworkers with strep. Patient blood pressure was noted to be elevated at triage but she admits that she has not been taking her blood pressure medication for about a year to. She currently has no symptoms related to hypertension. She will be given a refill on her medication as well as referral to a primary care doctor for continued monitoring of her blood pressure. Discussed suspected diagnosis and treatment plan with patient. She expressed understanding of instructions and agree with plan. Patient stable at time of discharge. Critical care attestation.: If time is entered above; I have spent that time in minutes in the direct care of this critically ill patient, excluding procedure time. ED Disposition Clinical Impression: Pharyngitis, Uncontrolled hypertension, Noncompliance with medication regimen Disposition: - TO HOME OR SELFCARE Is pt being admited?: No Does the pt Need Aspirin: No Condition: Stable Instructions: Pharyngitis, Hypertension (ED) Additional Instructions: Take the amoxicillin and the Motrin as prescribed. Recommend that you restart your blood pressure medication. Follow-up with the primary care doctor listed in your discharge instructions. Return to the ER if your symptoms worsens or changes in any way. Prescriptions: Ibuprofen [Motrin] 800 mg PO Q8HR PRN #30 tablet PRN Reason: pain Amoxicillin [Trimox CAP] 500 mg PO Q8H PRN #30 capsule PRN Reason: pain Referrals: SOL GARRIDO MD [Staff Physician] - 3-5 Days Forms: Work/School Release Form(ED) Time of Disposition: 13:15
== END 2021-03-20 14:47 | disposition home or self-care (01) ==
LOC: ED 11:04
DX: J02.9 Acute pharyngitis, unspecified (principal); I10 Essential (primary) hypertension; Z91.14 Patient's other noncompliance with medication regimen; Z98.890 Other specified postprocedural states; Z79.1 Long term (current) use of non-steroidal anti-inflammatories (NSAID); Z79.2 Long term (current) use of antibiotics; Z88.8 Allergy status to other drugs, medicaments and biological substances
CPT/HCPCS: 99282

== ENCOUNTER 2022-04-13 12:57 | Emergency (ER) | payer MEDICAID ==
[2022-04-13 13:19] VITALS: BP 171/109
--- NOTE | 2022-04-13 13:58 | XRay Report ---
Left ankle-3 views INDICATION: left ankle injury after a fall. COMPARISON: None available. IMPRESSION: No acute osseous abnormality. Normal alignment. No significant DJD. Mild generalized s welling about the ankle. Signer Name: Tha Franco MD Signed: 04/13/2022 1:54 PM Workstation Name: [id number]
== END 2022-04-13 20:45 | disposition left against medical advice (07) ==
LOC: ED 12:57
DX: M25.572 Pain in left ankle and joints of left foot (principal); M54.9 Dorsalgia, unspecified; Z53.21 Procedure and treatment not carried out due to patient leaving prior to being seen by health care provider; W19.XXXA Unspecified fall, initial encounter; Y93.89 Activity, other specified; Y92.89 Other specified places as the place of occurrence of the external cause; Y99.8 Other external cause status